=== PATIENT | male | born 1995 | race Caucasian/White ===

== ENCOUNTER 2023-07-14 22:40 | Emergency (ER) | payer MEDICAID ==
[~2023-07-14] VITALS: Ht 182.9 cm; Wt 86.4 kg
[2023-07-14 23:11] VITALS: TEMP 98.6
[2023-07-14 23:27] VITALS: BP 112/58; PULSE 60; RESP 16
== END 2023-07-14 23:59 | disposition home or self-care (01) ==
LOC: EMS 22:40
DX: S06.0X0A Concussion without loss of consciousness, initial encounter (principal); F12.90 Cannabis use, unspecified, uncomplicated; Y08.89XA Assault by other specified means, initial encounter; Y93.89 Activity, other specified; Y92.89 Other specified places as the place of occurrence of the external cause; Y99.8 Other external cause status
CPT/HCPCS: 99282; Z7502